=== PATIENT | male | born 1970 | race Caucasian/White ===

== ENCOUNTER 2017-07-14 08:23 | Outpatient (CLI) | payer OTHER ==
[2017-07-14 11:17] LABS: ALBUMIN 3.4 g/dL (3.4-5.0); ANION GAP 11.1 (8-16); CARBON DIOXIDE 29.4 mmol/L (21-32); CHOL/HDL RATIO 3.7 (1-4.5); POTASSIUM 4.5 mmol/L (3.5-5.1); TOTAL BILIRUBIN 0.6 mg/dL (0.0-1.0)
== END 2017-07-14 20:40 | disposition home or self-care (01) ==
LOC: MLB 08:23
PROVIDERS: ATTEND Student in an Organized Health Care Education/Training Program
DX: E66.01 Morbid (severe) obesity due to excess calories (principal); M06.9 Rheumatoid arthritis, unspecified; Z68.45 Body mass index [BMI] 70 or greater, adult
CPT/HCPCS: 36415; 80053; 83036

== ENCOUNTER → 2017-09-08 | Outpatient (CLI) | payer OTHER ==
[2017-09-08 11:50] LABS: BASOPHILS % (AUTO) 0.5 % (0.0-2.0); EOSINOPHILS # (AUTO) 0.2 K/uL (0-0.4); EOSINOPHILS % (AUTO) 3.5 % (0.0-4.0); HEMATOCRIT 44.7 % (36-52); HEMOGLOBIN 15.5 g/dL (12.0-18.0); LYMPHOCYTES # (AUTO) 1.5 K/uL (2.0-11.5); LYMPHOCYTES % (AUTO) 21.6 % (20.5-51.1); MEAN CORPUSCULAR HEMOGLOBIN 33 pg (27-31); MEAN CORPUSCULAR HGB CONC 35 g/dL (33-37); MEAN CORPUSCULAR VOLUME 94.3 fL (80-94); MONOCYTES # (AUTO) 0.6 K/uL (0.8-1.0); MONOCYTES % (AUTO) 8.7 % (1.7-9.3); NEUTROPHILS # (AUTO) 4.5 K/uL (1.8-7.7); NEUTROPHILS % (AUTO) 65.7 % (42.2-75.2); PLATELET COUNT (AUTO) 197 K/uL (140-450); RED BLOOD CELL COUNT(AUTO) 4.74 MIL/uL (4.20-6.10); RED CELL DISTRIBUTION WIDTH 14.2 % (11.6-13.7); WHITE BLOOD COUNT (AUTO) 6.8 K/uL (4.8-10.8)
[2017-09-08 12:29] LABS: ALBUMIN 3.6 g/dL (3.4-5.0); ANION GAP 12.7 (8-16); CARBON DIOXIDE 28.4 mmol/L (21-32); POTASSIUM 4.1 mmol/L (3.5-5.1); TOTAL BILIRUBIN 0.8 mg/dL (0.0-1.0)
== END ==
LOC: MLB 10:03
DX: M51.36 Other intervertebral disc degeneration, lumbar region (principal); M47.814 Spondylosis without myelopathy or radiculopathy, thoracic region; M13.0 Polyarthritis, unspecified; R20.0 Anesthesia of skin; R20.2 Paresthesia of skin
CPT/HCPCS: 36415; 72040; 72072; 72100; 80053; 82306; 82607; 82746; 83520; 85025; 85651; 86038; 86140; 86160; 86430

== ENCOUNTER 2018-02-16 08:41 | Outpatient (CLI) | payer OTHER ==
[2018-02-16 09:20] LABS: BASOPHILS % (AUTO) 0.7 % (0.0-2.0); EOSINOPHILS # (AUTO) 0.2 K/uL (0-0.4); EOSINOPHILS % (AUTO) 3.9 % (0.0-4.0); HEMATOCRIT 42.7 % (36-52); HEMOGLOBIN 14.7 g/dL (12.0-18.0); LYMPHOCYTES # (AUTO) 1.4 K/uL (2.0-11.5); LYMPHOCYTES % (AUTO) 22.5 % (20.5-51.1); MEAN CORPUSCULAR HEMOGLOBIN 33 pg (27-31); MEAN CORPUSCULAR HGB CONC 34 g/dL (33-37); MEAN CORPUSCULAR VOLUME 95.2 fL (80-94); MONOCYTES # (AUTO) 0.5 K/uL (0.8-1.0); MONOCYTES % (AUTO) 8.2 % (1.7-9.3); NEUTROPHILS # (AUTO) 4.1 K/uL (1.8-7.7); NEUTROPHILS % (AUTO) 64.7 % (42.2-75.2); PLATELET COUNT (AUTO) 214 K/uL (140-450); RED BLOOD CELL COUNT(AUTO) 4.48 MIL/uL (4.20-6.10); RED CELL DISTRIBUTION WIDTH 14.1 % (11.6-13.7); WHITE BLOOD COUNT (AUTO) 6.3 K/uL (4.8-10.8)
[2018-02-16 09:57] LABS: ALBUMIN 3.4 g/dL (3.4-5.0); ANION GAP 8.2 (8-16); CARBON DIOXIDE 28.9 mmol/L (21-32); POTASSIUM 4.1 mmol/L (3.5-5.1); TOTAL BILIRUBIN 0.7 mg/dL (0.0-1.0)
== END 2018-02-16 15:52 | disposition home or self-care (01) ==
LOC: MLB 08:41
DX: M06.00 Rheumatoid arthritis without rheumatoid factor, unspecified site (principal)
CPT/HCPCS: 36415; 80053; 85025; 85651; 86140

== ENCOUNTER 2018-02-19 15:59 | Outpatient (CLI) | payer OTHER | END 2018-02-19 19:06 | disposition home or self-care (01) | LOC: MRD 15:59 | DX: M06.842 Other specified rheumatoid arthritis, left hand (principal); M06.832 Other specified rheumatoid arthritis, left wrist; M06.831 Other specified rheumatoid arthritis, right wrist; M06.841 Other specified rheumatoid arthritis, right hand; M77.51 Other enthesopathy of right foot and ankle; M21.612 Bunion of left foot; M06.871 Other specified rheumatoid arthritis, right ankle and foot; M06.872 Other specified rheumatoid arthritis, left ankle and foot; R06.00 Dyspnea, unspecified | CPT/HCPCS: 73110; 73130; 73610; 73630; Q0092 ==

== ENCOUNTER 2018-02-21 16:01 | Outpatient (CLI) | payer OTHER | END 2018-02-21 18:58 | disposition home or self-care (01) | LOC: MLB 16:01 → MRD 18:58 | DX: I73.9 Peripheral vascular disease, unspecified (principal) | CPT/HCPCS: 93925; 93970; Q0092 ==

== ENCOUNTER 2018-04-29 12:54 | Outpatient (CLI) | payer OTHER ==
[2018-04-29 13:51] LABS: BASOPHILS % (AUTO) 0.6 % (0.0-2.0); EOSINOPHILS # (AUTO) 0.3 K/uL (0-0.4); EOSINOPHILS % (AUTO) 3.7 % (0.0-4.0); HEMATOCRIT 45.2 % (36-52); HEMOGLOBIN 15.3 g/dL (12.0-18.0); LYMPHOCYTES # (AUTO) 1.7 K/uL (2.0-11.5); LYMPHOCYTES % (AUTO) 25.1 % (20.5-51.1); MEAN CORPUSCULAR HEMOGLOBIN 33 pg (27-31); MEAN CORPUSCULAR HGB CONC 34 g/dL (33-37); MEAN CORPUSCULAR VOLUME 96.2 fL (80-94); MONOCYTES # (AUTO) 0.6 K/uL (0.8-1.0); MONOCYTES % (AUTO) 8.5 % (1.7-9.3); NEUTROPHILS # (AUTO) 4.2 K/uL (1.8-7.7); NEUTROPHILS % (AUTO) 62.1 % (42.2-75.2); PLATELET COUNT (AUTO) 221 K/uL (140-450); RED CELL DISTRIBUTION WIDTH 14.8 % (11.6-13.7); WHITE BLOOD COUNT (AUTO) 6.7 K/uL (4.8-10.8)
[2018-04-29 14:09] LABS: ALBUMIN 3.7 g/dL (3.4-5.0); ANION GAP 13.2 (8-16); CARBON DIOXIDE 28.8 mmol/L (21-32); TOTAL BILIRUBIN 0.7 mg/dL (0.0-1.0)
== END 2018-04-29 20:36 | disposition home or self-care (01) ==
LOC: MLB 12:54
DX: M06.00 Rheumatoid arthritis without rheumatoid factor, unspecified site (principal)
CPT/HCPCS: 36415; 80053; 85025; 85651; 86140

== ENCOUNTER → 2018-07-27 | Outpatient (CLI) | payer OTHER ==
[2018-07-27 11:15] LABS: BASOPHILS % (AUTO) 0.6 % (0.0-2.0); EOSINOPHILS # (AUTO) 0.2 K/uL (0-0.4); EOSINOPHILS % (AUTO) 3.5 % (0.0-4.0); HEMATOCRIT 43.3 % (36-52); LYMPHOCYTES # (AUTO) 1.6 K/uL (2.0-11.5); LYMPHOCYTES % (AUTO) 26.5 % (20.5-51.1); MEAN CORPUSCULAR HEMOGLOBIN 33 pg (27-31); MEAN CORPUSCULAR HGB CONC 35 g/dL (33-37); MEAN CORPUSCULAR VOLUME 96.5 fL (80-94); MONOCYTES # (AUTO) 0.5 K/uL (0.8-1.0); MONOCYTES % (AUTO) 8.8 % (1.7-9.3); NEUTROPHILS # (AUTO) 3.7 K/uL (1.8-7.7); NEUTROPHILS % (AUTO) 60.6 % (42.2-75.2); PLATELET COUNT (AUTO) 224 K/uL (140-450); RED BLOOD CELL COUNT(AUTO) 4.49 MIL/uL (4.20-6.10); RED CELL DISTRIBUTION WIDTH 14.2 % (11.6-13.7); WHITE BLOOD COUNT (AUTO) 6.1 K/uL (4.8-10.8)
[2018-07-27 11:35] LABS: ALBUMIN 3.6 g/dL (3.4-5.0); ANION GAP 13.2 (8-16); CARBON DIOXIDE 27.1 mmol/L (21-32); CREATININE 0.9 mg/dL (0.7-1.3); POTASSIUM 4.3 mmol/L (3.5-5.1); TOTAL BILIRUBIN 0.6 mg/dL (0.0-1.0)
== END | disposition home or self-care (01) ==
LOC: MLB 10:48
DX: M06.00 Rheumatoid arthritis without rheumatoid factor, unspecified site (principal)
CPT/HCPCS: 36415; 80053; 85025; 85651; 86140

== ENCOUNTER 2018-11-11 15:05 | Outpatient (CLI) | payer OTHER ==
[2018-11-11 15:37] LABS: BASOPHILS % (AUTO) 0.5 % (0.0-2.0); EOSINOPHILS # (AUTO) 0.2 K/uL (0-0.4); EOSINOPHILS % (AUTO) 2.5 % (0.0-4.0); HEMATOCRIT 43.2 % (36-52); HEMOGLOBIN 15.1 g/dL (12.0-18.0); LYMPHOCYTES # (AUTO) 1.8 K/uL (2.0-11.5); LYMPHOCYTES % (AUTO) 25.7 % (20.5-51.1); MEAN CORPUSCULAR HEMOGLOBIN 34 pg (27-31); MEAN CORPUSCULAR HGB CONC 35 g/dL (33-37); MEAN CORPUSCULAR VOLUME 96.9 fL (80-94); MONOCYTES # (AUTO) 0.4 K/uL (0.8-1.0); MONOCYTES % (AUTO) 6.4 % (1.7-9.3); NEUTROPHILS # (AUTO) 4.6 K/uL (1.8-7.7); NEUTROPHILS % (AUTO) 64.9 % (42.2-75.2); PLATELET COUNT (AUTO) 209 K/uL (140-450); RED BLOOD CELL COUNT(AUTO) 4.46 MIL/uL (4.20-6.10); RED CELL DISTRIBUTION WIDTH 14.1 % (11.6-13.7)
[2018-11-11 16:11] LABS: ALBUMIN 3.7 g/dL (3.4-5.0); ANION GAP 12.5 (8-16); CARBON DIOXIDE 27.8 mmol/L (21-32); CREATININE 0.9 mg/dL (0.7-1.3); POTASSIUM 4.3 mmol/L (3.5-5.1); TOTAL BILIRUBIN 0.7 mg/dL (0.0-1.0)
[2018-11-12 06:09] LABS: HEPATITIS B SURFACE ANTIBODY Non Reactive (.); HEPATITIS B SURFACE ANTIGEN Negative (Negative)
== END 2018-11-11 21:10 | disposition home or self-care (01) ==
LOC: MLB 15:05
DX: M06.00 Rheumatoid arthritis without rheumatoid factor, unspecified site (principal)
CPT/HCPCS: 36415; 80053; 85025; 85651; 86140; 86706; 86803; 87340

== ENCOUNTER 2018-11-14 17:37 | Outpatient (CLI) | payer OTHER | END 2018-11-14 20:12 | disposition home or self-care (01) | LOC: MLB 17:37 | DX: M06.00 Rheumatoid arthritis without rheumatoid factor, unspecified site (principal) | CPT/HCPCS: 36415 ==

== ENCOUNTER 2019-05-15 15:02 | Emergency (ER) | payer OTHER ==
[~2019-05-15] VITALS: Ht 167.6 cm; Wt 195.0 kg
[2019-05-15 15:13] VITALS: BP 144/84
--- NOTE | 2019-05-15 15:15 | NUR ---
TRIAGE COMPLETE. VSS. RETURNED TO LOBBY TO WAIT FOR BED IN ED.
--- NOTE | 2019-05-15 16:41 | NUR ---
PT TO ER BED 9
--- NOTE | 2019-05-15 16:50 | NUR ---
48 y/o m presents to ER c/o cough and nasal congestion x 4 days. Pt has dry cough. Pt reports he has been drinking plenty of fluid, taking vitamin C, last dose of Tylenol taken at 4pm. A&O x4. Respiration even and unlabored. Awaiting for ERMD to evaluate pt. Allergies: nka Med hx: HTN and RA
--- NOTE | 2019-05-15 17:06 | NUR ---
Dr. Jay evaluating pt at bedside.
[2019-05-15 17:14] VITALS: BP 131/83
--- NOTE | 2019-05-15 17:14 | NUR ---
Patient discharged by Dr. Jay with v/s stable. Written and verbal after care instructions given and explained. Patient alert, oriented and verbalized understanding of instructions. Ambulatory with steady gait. All questions addressed prior to discharge. ID band removed. Patient advised to follow up with PMD. Rx of Tessalon Perles 200mg and Augmentin 875mg was given. Patient educated on indication of medication including possible reaction and side effects. Opportunity to ask questions provided and answered.
== END 2019-05-15 17:14 | disposition home or self-care (01) ==
LOC: MED 15:02
DX: J20.9 Acute bronchitis, unspecified (principal); I10 Essential (primary) hypertension; E66.01 Morbid (severe) obesity due to excess calories; M06.9 Rheumatoid arthritis, unspecified; Z68.44 Body mass index [BMI] 60.0-69.9, adult
CPT/HCPCS: 99283

== ENCOUNTER 2019-05-27 14:59 | Outpatient (CLI) | payer OTHER ==
[2019-05-27 15:31] LABS: BASOPHILS # (AUTO) 0.1 K/uL (0.00-0.22); BASOPHILS % (AUTO) 0.9 % (0.0-2.0); EOSINOPHILS # (AUTO) 0.2 K/uL (0-0.4); HEMATOCRIT 43.4 % (36-52); HEMOGLOBIN 14.9 g/dL (12.0-18.0); LYMPHOCYTES # (AUTO) 2.2 K/uL (2.0-11.5); LYMPHOCYTES % (AUTO) 26.1 % (20.5-51.1); MEAN CORPUSCULAR HEMOGLOBIN 34 pg (27-31); MEAN CORPUSCULAR HGB CONC 34 g/dL (33-37); MEAN CORPUSCULAR VOLUME 98.4 fL (80-94); MONOCYTES # (AUTO) 0.7 K/uL (0.8-1.0); NEUTROPHILS # (AUTO) 5.1 K/uL (1.8-7.7); PLATELET COUNT (AUTO) 217 K/uL (140-450); RED BLOOD CELL COUNT(AUTO) 4.41 MIL/uL (4.20-6.10); RED CELL DISTRIBUTION WIDTH 14.5 % (11.6-13.7); WHITE BLOOD COUNT (AUTO) 8.3 K/uL (4.8-10.8)
[2019-05-27 15:54] LABS: ALBUMIN 3.7 g/dL (3.4-5.0); ANION GAP 13.5 (8-16); CARBON DIOXIDE 27.9 mmol/L (21-32); CREATININE 0.9 mg/dL (0.7-1.3); POTASSIUM 4.4 mmol/L (3.5-5.1); TOTAL BILIRUBIN 0.8 mg/dL (0.0-1.0)
== END 2019-05-27 20:21 | disposition home or self-care (01) ==
LOC: MLB 14:59
DX: M06.00 Rheumatoid arthritis without rheumatoid factor, unspecified site (principal)
CPT/HCPCS: 36415; 80053; 85025; 85651; 86140

== ENCOUNTER 2019-06-25 08:40 | Outpatient (CLI) | payer OTHER ==
[2019-06-25 09:10] LABS: BILIRUBIN,URINE NEGATIVE (NEGATIVE); BLOOD, URINE NEGATIVE (NEGATIVE); COLOR,URINE DARK YELLOW (YELLOW); LEUKOCYTE ESTERASE ,URINE NEGATIVE (NEGATIVE); NITRITE, URINE NEGATIVE (NEGATIVE); UGLUCOSE NEGATIVE (NEGATIVE)
[2019-06-25 09:12] LABS: BASOPHILS # (AUTO) 0.1 K/uL (0.00-0.22); BASOPHILS % (AUTO) 0.8 % (0.0-2.0); EOSINOPHILS # (AUTO) 0.2 K/uL (0-0.4); EOSINOPHILS % (AUTO) 2.6 % (0.0-4.0); HEMATOCRIT 44.9 % (36-52); HEMOGLOBIN 15.6 g/dL (12.0-18.0); LYMPHOCYTES % (AUTO) 26.1 % (20.5-51.1); MEAN CORPUSCULAR HEMOGLOBIN 34 pg (27-31); MEAN CORPUSCULAR HGB CONC 35 g/dL (33-37); MEAN CORPUSCULAR VOLUME 97.1 fL (80-94); MONOCYTES # (AUTO) 0.5 K/uL (0.8-1.0); MONOCYTES % (AUTO) 6.3 % (1.7-9.3); NEUTROPHILS % (AUTO) 64.2 % (42.2-75.2); PLATELET COUNT (AUTO) 234 K/uL (140-450); RED BLOOD CELL COUNT(AUTO) 4.62 MIL/uL (4.20-6.10); RED CELL DISTRIBUTION WIDTH 14.4 % (11.6-13.7); WHITE BLOOD COUNT (AUTO) 7.8 K/uL (4.8-10.8)
[2019-06-25 10:08] LABS: CHOL/HDL RATIO 3.6 (1-4.5); CREATININE 0.9 mg/dL (0.6-1.3); FREE T4 (FREE THYROXINE) 0.95 ng/dL (0.76-1.46); THYROID STIMULATING HORMONE 1.11 uIU/mL (0.34-3.74); TOTAL BILIRUBIN 0.8 mg/dL (0.0-1.0)
[2019-06-25 12:45] LABS: APPEARANCE,URINE CLEAR (CLEAR); RBC,URINE 0-5 /HPF (0-5); WBC,URINE 0-5 /HPF (0-5)
== END 2019-06-25 20:07 | disposition home or self-care (01) ==
LOC: MLB 08:40
DX: Z13.29 Encounter for screening for other suspected endocrine disorder (principal); Z13.21 Encounter for screening for nutritional disorder; Z13.0 Encounter for screening for diseases of the blood and blood-forming organs and certain disorders involving the immune mechanism; Z13.220 Encounter for screening for lipoid disorders; I10 Essential (primary) hypertension; Z87.19 Personal history of other diseases of the digestive system
CPT/HCPCS: 36415; 80053; 81001; 83690; 84439; 84443; 85025

== ENCOUNTER 2019-07-16 15:20 | Outpatient (CLI) | payer OTHER ==
[2019-07-17 07:10] LABS: FOLIC ACID 13.1 ng/mL (>3.0)
== END 2019-07-16 21:04 | disposition home or self-care (01) ==
LOC: MLB 15:20
DX: G58.9 Mononeuropathy, unspecified (principal)
CPT/HCPCS: 36415; 82607; 82746

== ENCOUNTER 2019-10-18 11:19 | Outpatient (CLI) | payer OTHER ==
[2019-10-18 11:52] LABS: BASOPHILS % (AUTO) 0.5 % (0.0-2.0); EOSINOPHILS # (AUTO) 0.3 K/uL (0-0.4); EOSINOPHILS % (AUTO) 3.7 % (0.0-4.0); HEMATOCRIT 43.4 % (36-52); HEMOGLOBIN 15.3 g/dL (12.0-18.0); LYMPHOCYTES # (AUTO) 1.7 K/uL (2.0-11.5); MEAN CORPUSCULAR HEMOGLOBIN 34 pg (27-31); MEAN CORPUSCULAR HGB CONC 35 g/dL (33-37); MEAN CORPUSCULAR VOLUME 97.3 fL (80-94); MONOCYTES # (AUTO) 0.6 K/uL (0.8-1.0); NEUTROPHILS # (AUTO) 4.4 K/uL (1.8-7.7); NEUTROPHILS % (AUTO) 63.8 % (42.2-75.2); PLATELET COUNT (AUTO) 210 K/uL (140-450); RED BLOOD CELL COUNT(AUTO) 4.47 MIL/uL (4.20-6.10); RED CELL DISTRIBUTION WIDTH 14.1 % (11.6-13.7); WHITE BLOOD COUNT (AUTO) 6.9 K/uL (4.8-10.8)
[2019-10-18 12:23] LABS: ALBUMIN 3.7 g/dL (3.4-5.0); ANION GAP 11.1 (8-16); POTASSIUM 4.1 mmol/L (3.5-5.1); TOTAL BILIRUBIN 0.8 mg/dL (0.0-1.0)
== END 2019-10-18 21:05 | disposition home or self-care (01) ==
LOC: MLB 11:19
DX: M06.00 Rheumatoid arthritis without rheumatoid factor, unspecified site (principal); M06.9 Rheumatoid arthritis, unspecified; R79.89 Other specified abnormal findings of blood chemistry; Z79.899 Other long term (current) drug therapy
CPT/HCPCS: 36415; 80053; 82306; 85025; 85651; 86140

== ENCOUNTER 2020-02-07 13:49 | Outpatient (CLI) | payer OTHER ==
[2020-02-07 14:42] LABS: BASOPHILS % (AUTO) 0.7 % (0.0-2.0); EOSINOPHILS # (AUTO) 0.2 K/uL (0-0.4); EOSINOPHILS % (AUTO) 3.5 % (0.0-4.0); HEMATOCRIT 44.8 % (36-52); HEMOGLOBIN 15.7 g/dL (12.0-18.0); LYMPHOCYTES # (AUTO) 1.7 K/uL (2.0-11.5); LYMPHOCYTES % (AUTO) 26.8 % (20.5-51.1); MEAN CORPUSCULAR HEMOGLOBIN 34 pg (27-31); MEAN CORPUSCULAR HGB CONC 35 g/dL (33-37); MONOCYTES # (AUTO) 0.4 K/uL (0.8-1.0); MONOCYTES % (AUTO) 6.8 % (1.7-9.3); NEUTROPHILS # (AUTO) 3.9 K/uL (1.8-7.7); NEUTROPHILS % (AUTO) 62.2 % (42.2-75.2); PLATELET COUNT (AUTO) 215 K/uL (140-450); RED BLOOD CELL COUNT(AUTO) 4.67 MIL/uL (4.20-6.10); RED CELL DISTRIBUTION WIDTH 14.1 % (11.6-13.7); WHITE BLOOD COUNT (AUTO) 6.3 K/uL (4.8-10.8)
[2020-02-07 14:59] LABS: ALBUMIN 3.7 g/dL (3.4-5.0); ANION GAP 14.3 (8-16); CARBON DIOXIDE 23.5 mmol/L (21-32); CREATININE 1.1 mg/dL (0.6-1.3); POTASSIUM 3.8 mmol/L (3.5-5.1); TOTAL BILIRUBIN 0.8 mg/dL (0.0-1.0)
[2020-02-10 09:10] LABS: HEPATITIS B SURFACE ANTIBODY Non Reactive (.); HEPATITIS B SURFACE ANTIGEN Negative (Negative)
== END 2020-02-07 20:19 | disposition home or self-care (01) ==
LOC: MLB 13:49
DX: M06.00 Rheumatoid arthritis without rheumatoid factor, unspecified site (principal); B19.20 Unspecified viral hepatitis C without hepatic coma; N06.9 Isolated proteinuria with unspecified morphologic lesion; Z11.59 Encounter for screening for other viral diseases; Z11.1 Encounter for screening for respiratory tuberculosis; Z79.899 Other long term (current) drug therapy
CPT/HCPCS: 36415; 80053; 85025; 85651; 86140; 86704; 86706; 86803; 87340

== ENCOUNTER 2022-10-05 14:41 | Outpatient (CLI) | payer OTHER ==
[2022-10-05 15:24] LABS: BASOPHILS % (AUTO) 0.5 % (0.0-2.0); EOSINOPHILS # (AUTO) 0.4 K/uL (0-0.4); EOSINOPHILS % (AUTO) 4.9 % (0.0-4.0); HEMATOCRIT 43.1 % (36-52); LYMPHOCYTES % (AUTO) 24.9 % (20.5-51.1); MEAN CORPUSCULAR HEMOGLOBIN 33 pg (27-31); MEAN CORPUSCULAR HGB CONC 35 g/dL (33-37); MONOCYTES # (AUTO) 0.6 K/uL (0.8-1.0); MONOCYTES % (AUTO) 8.2 % (1.7-9.3); NEUTROPHILS # (AUTO) 4.8 K/uL (1.8-7.7); NEUTROPHILS % (AUTO) 61.5 % (42.2-75.2); PLATELET COUNT (AUTO) 223 K/uL (140-450); RED BLOOD CELL COUNT(AUTO) 4.53 MIL/uL (4.20-6.10); RED CELL DISTRIBUTION WIDTH 14.2 % (11.6-13.7); WHITE BLOOD COUNT (AUTO) 7.9 K/uL (4.8-10.8)
[2022-10-05 15:48] LABS: ALBUMIN 3.6 g/dL (3.4-5.0); ANION GAP 9.8 (8-16); CARBON DIOXIDE 30.2 mmol/L (21-32); CREATININE 0.9 mg/dL (0.6-1.3); TOTAL BILIRUBIN 0.5 mg/dL (0.0-1.0)
== END 2022-10-05 17:11 | disposition home or self-care (01) ==
LOC: MLB 14:41
PROVIDERS: ATTEND Family Medicine Geriatric Medicine
DX: I10 Essential (primary) hypertension (principal); M05.79 Rheumatoid arthritis with rheumatoid factor of multiple sites without organ or systems involvement; E66.01 Morbid (severe) obesity due to excess calories; Z79.899 Other long term (current) drug therapy
CPT/HCPCS: 36415; 80053; 85025; 85651; 86140

== ENCOUNTER 2023-01-10 08:20 | Emergency (ER) | payer OTHER ==
[~2023-01-10] VITALS: Ht 167.6 cm; Wt 185.1 kg
[2023-01-10 08:38] VITALS: BP 134/67; PULSE 73; RESP 20; TEMP 98; O2SAT 99
[2023-01-10 09:00] VITALS: O2SAT 99
[2023-01-10] MEDS ORDERED: KETOROLAC 60 MG/2 ML VIAL IM ONE (09:00)
[2023-01-10] MEDS ORDERED: ACET-8905 PO (09:41)
[2023-01-10 10:16] VITALS: BP 130/67; PULSE 75; RESP 20; TEMP 98; O2SAT 99
== END 2023-01-10 10:16 | disposition home or self-care (01) ==
LOC: MED 08:20
DX: M54.50 Low back pain, unspecified (principal); I10 Essential (primary) hypertension; Z79.899 Other long term (current) drug therapy
CPT/HCPCS: 72100; 81002; 96372; 99283; J1885

== ENCOUNTER 2023-01-11 10:25 | Outpatient (CLI) | payer OTHER ==
[~2023-01-11 10:25] MED LIST: ACET-8905 PO
[2023-01-11 11:05] LABS: BASOPHILS % (AUTO) 0.5 % (0.0-2.0); EOSINOPHILS # (AUTO) 0.4 K/uL (0-0.4); EOSINOPHILS % (AUTO) 4.9 % (0.0-4.0); HEMATOCRIT 42.2 % (36-52); HEMOGLOBIN 14.8 g/dL (12.0-18.0); LYMPHOCYTES # (AUTO) 1.6 K/uL (2.0-11.5); LYMPHOCYTES % (AUTO) 21.3 % (20.5-51.1); MEAN CORPUSCULAR HEMOGLOBIN 33 pg (27-31); MEAN CORPUSCULAR HGB CONC 35 g/dL (33-37); MEAN CORPUSCULAR VOLUME 94.7 fL (80-94); MONOCYTES # (AUTO) 0.6 K/uL (0.8-1.0); MONOCYTES % (AUTO) 8.4 % (1.7-9.3); NEUTROPHILS # (AUTO) 4.7 K/uL (1.8-7.7); NEUTROPHILS % (AUTO) 64.9 % (42.2-75.2); PLATELET COUNT (AUTO) 207 K/uL (140-450); RED BLOOD CELL COUNT(AUTO) 4.45 MIL/uL (4.20-6.10); RED CELL DISTRIBUTION WIDTH 13.8 % (11.6-13.7); WHITE BLOOD COUNT (AUTO) 7.3 K/uL (4.8-10.8)
[2023-01-11 11:19] LABS: ALBUMIN 3.7 g/dL (3.4-5.0); ANION GAP 8.8 (8-16); CALCIUM 8.7 mg/dL (8.5-10.1); CARBON DIOXIDE 29.6 mmol/L (21-32); POTASSIUM 4.4 mmol/L (3.5-5.1); TOTAL BILIRUBIN 0.7 mg/dL (0.0-1.0); TOTAL PROTEIN, SERUM 7.1 g/dL (6.4-8.2)
== END 2023-01-11 21:45 | disposition home or self-care (01) ==
LOC: MLB 10:25
PROVIDERS: ATTEND Internal Medicine Rheumatology
DX: M05.79 Rheumatoid arthritis with rheumatoid factor of multiple sites without organ or systems involvement (principal); R35.1 Nocturia; Z79.899 Other long term (current) drug therapy
CPT/HCPCS: 36415; 80053; 84153; 85025

== ENCOUNTER 2023-05-29 14:32 | Outpatient (CLI) | payer OTHER ==
[2023-05-29 15:21] LABS: BASOPHILS % (AUTO) 0.5 % (0.0-2.0); EOSINOPHILS # (AUTO) 0.3 K/uL (0-0.4); EOSINOPHILS % (AUTO) 3.9 % (0.0-4.0); HEMATOCRIT 42.8 % (36-52); HEMOGLOBIN 15.3 g/dL (12.0-18.0); LYMPHOCYTES % (AUTO) 24.7 % (20.5-51.1); MEAN CORPUSCULAR HEMOGLOBIN 34 pg (27-31); MEAN CORPUSCULAR HGB CONC 36 g/dL (33-37); MEAN CORPUSCULAR VOLUME 95.5 fL (80-94); MONOCYTES # (AUTO) 0.7 K/uL (0.8-1.0); MONOCYTES % (AUTO) 8.9 % (1.7-9.3); PLATELET COUNT (AUTO) 216 K/uL (140-450); RED BLOOD CELL COUNT(AUTO) 4.49 MIL/uL (4.20-6.10); RED CELL DISTRIBUTION WIDTH 13.9 % (11.6-13.7)
[2023-05-29 15:47] LABS: ALBUMIN 3.4 g/dL (3.4-5.0); ANION GAP 9.8 (8-16); CALCIUM 8.8 mg/dL (8.5-10.1); CARBON DIOXIDE 29.2 mmol/L (21-32); CHOL/HDL RATIO 3.6 (1-4.5); CREATININE 0.9 mg/dL (0.6-1.3); THYROID STIMULATING HORMONE 1.75 uIU/mL (0.34-3.74); TOTAL BILIRUBIN 0.6 mg/dL (0.0-1.0); TOTAL PROTEIN, SERUM 8.1 g/dL (6.4-8.2)
[2023-05-30 09:07] LABS: HEMOGLOBIN A1C 5.5 % (4.8-5.6)
[2023-05-30 10:06] LABS: T4 FREE (DIRECT) 0.98 ng/dL (0.82-1.77)
[2023-05-30 10:29] LABS: FERRITIN 402 ng/mL (30 - 400)
[2023-05-30 15:07] LABS: FOLIC ACID > 20.00 ng/mL (>3.0)
[2023-05-30 21:16] LABS: VITAMIN D, 25-HYDROXY 17.9 ng/mL (30.0-100.0)
== END 2023-05-29 22:05 | disposition home or self-care (01) ==
LOC: MLB 14:32
PROVIDERS: ATTEND Internal Medicine Rheumatology
DX: Z01.812 Encounter for preprocedural laboratory examination (principal)
CPT/HCPCS: 36415; 80053; 82306; 82607; 82728; 82746; 83036; 84439; 84443; 85025

== ENCOUNTER 2023-07-12 10:35 | Emergency (ER) | payer OTHER ==
[~2023-07-12] VITALS: Ht 167.6 cm; Wt 192.4 kg
[2023-07-12 11:01] VITALS: BP 145/91; PULSE 76; RESP 22; TEMP 97.2; O2SAT 98
[2023-07-12] MEDS ORDERED: AMOX1TAB8 PO (11:42)
[2023-07-12] MEDS ORDERED: LORA1T1237 PO (11:42)
[2023-07-12] MEDS ORDERED: FLONAS NS (11:42)
[2023-07-12 11:54] VITALS: BP 142/70; PULSE 70; O2SAT 95
== END 2023-07-12 11:54 | disposition home or self-care (01) ==
LOC: MED 10:35
DX: J01.90 Acute sinusitis, unspecified (principal); H92.03 Otalgia, bilateral; R42 Dizziness and giddiness; I10 Essential (primary) hypertension; G47.30 Sleep apnea, unspecified; M06.9 Rheumatoid arthritis, unspecified; Z79.899 Other long term (current) drug therapy
CPT/HCPCS: 99283

== ENCOUNTER 2023-07-18 11:38 | Outpatient (CLI) | payer OTHER ==
[~2023-07-18 11:38] MED LIST changes: +AMOX1TAB8 PO; +FLONAS NS; +LORA1T1237 PO
[2023-07-18 14:16] LABS: BASOPHILS % (AUTO) 0.6 % (0.0-2.0); EOSINOPHILS # (AUTO) 0.2 K/uL (0-0.4); EOSINOPHILS % (AUTO) 2.8 % (0.0-4.0); HEMATOCRIT 41.8 % (36-52); LYMPHOCYTES # (AUTO) 1.5 K/uL (2.0-11.5); LYMPHOCYTES % (AUTO) 18.9 % (20.5-51.1); MEAN CORPUSCULAR HEMOGLOBIN 34 pg (27-31); MEAN CORPUSCULAR HGB CONC 36 g/dL (33-37); MEAN CORPUSCULAR VOLUME 94.1 fL (80-94); MONOCYTES # (AUTO) 0.7 K/uL (0.8-1.0); MONOCYTES % (AUTO) 9.5 % (1.7-9.3); NEUTROPHILS # (AUTO) 5.4 K/uL (1.8-7.7); NEUTROPHILS % (AUTO) 68.2 % (42.2-75.2); PLATELET COUNT (AUTO) 244 K/uL (140-450); RED BLOOD CELL COUNT(AUTO) 4.44 MIL/uL (4.20-6.10); RED CELL DISTRIBUTION WIDTH 14.1 % (11.6-13.7); WHITE BLOOD COUNT (AUTO) 7.9 K/uL (4.8-10.8)
[2023-07-18 14:40] LABS: ALBUMIN 3.4 g/dL (3.4-5.0); ANION GAP 13.3 (8-16); CALCIUM 8.5 mg/dL (8.5-10.1); CARBON DIOXIDE 27.8 mmol/L (21-32); CREATININE 0.9 mg/dL (0.6-1.3); POTASSIUM 4.1 mmol/L (3.5-5.1); TOTAL BILIRUBIN 0.6 mg/dL (0.0-1.0); TOTAL PROTEIN, SERUM 8.1 g/dL (6.4-8.2)
== END 2023-07-18 21:17 | disposition home or self-care (01) ==
LOC: MLB 11:38
PROVIDERS: ATTEND Internal Medicine Rheumatology
DX: M05.79 Rheumatoid arthritis with rheumatoid factor of multiple sites without organ or systems involvement (principal); Z79.899 Other long term (current) drug therapy
CPT/HCPCS: 36415; 80053; 85025; 85651; 86140

== ENCOUNTER 2023-07-30 15:40 | Outpatient (CLI) | payer OTHER | END 2023-07-30 20:05 | disposition home or self-care (01) | LOC: MLB 15:40 | PROVIDERS: ATTEND Internal Medicine Rheumatology | DX: Z11.1 Encounter for screening for respiratory tuberculosis (principal) ==

== ENCOUNTER 2023-11-19 14:43 | Outpatient (CLI) | payer OTHER ==
[2023-11-19 15:48] LABS: BASOPHILS % (AUTO) 0.6 % (0.0-2.0); EOSINOPHILS # (AUTO) 0.3 K/uL (0-0.4); EOSINOPHILS % (AUTO) 4.7 % (0.0-4.0); HEMATOCRIT 43.4 % (36-52); HEMOGLOBIN 15.2 g/dL (12.0-18.0); LYMPHOCYTES # (AUTO) 1.8 K/uL (2.0-11.5); LYMPHOCYTES % (AUTO) 26.6 % (20.5-51.1); MEAN CORPUSCULAR HEMOGLOBIN 34 pg (27-31); MEAN CORPUSCULAR HGB CONC 35 g/dL (33-37); MEAN CORPUSCULAR VOLUME 96.6 fL (80-94); MONOCYTES # (AUTO) 0.7 K/uL (0.8-1.0); MONOCYTES % (AUTO) 9.5 % (1.7-9.3); NEUTROPHILS % (AUTO) 58.6 % (42.2-75.2); PLATELET COUNT (AUTO) 215 K/uL (140-450); RED BLOOD CELL COUNT(AUTO) 4.49 MIL/uL (4.20-6.10); RED CELL DISTRIBUTION WIDTH 14.1 % (11.6-13.7); WHITE BLOOD COUNT (AUTO) 6.9 K/uL (4.8-10.8)
[2023-11-19 16:02] LABS: ANION GAP 12.3 (8-16); CALCIUM 8.7 mg/dL (8.5-10.1); CARBON DIOXIDE 28.7 mmol/L (21-32)
== END 2023-11-19 20:30 | disposition home or self-care (01) ==
LOC: MLB 14:43
PROVIDERS: ATTEND Internal Medicine Rheumatology
DX: M05.79 Rheumatoid arthritis with rheumatoid factor of multiple sites without organ or systems involvement (principal); E55.9 Vitamin D deficiency, unspecified; E66.9 Obesity, unspecified; Z79.899 Other long term (current) drug therapy
CPT/HCPCS: 36415; 80048; 82306; 85025; 85651; 86140